=== PATIENT | female | born 1960 | race Caucasian/White ===

== ENCOUNTER 2017-09-04 09:46 | Inpatient (IN) | payer OTHER ==
[2017-09-04 09:56] VITALS: BMI 35.5
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
[2017-09-04] MEDS ORDERED: MENTHOL/PHENOL 1 EACH UD MM PRN (12:32)
[2017-09-04] MEDS ORDERED: IBUPROFEN 400 MG TABLET (FP) PO PRN (12:32)
[2017-09-04] MEDS ORDERED: NICOTINE POLACRILEX 2 MG GUM BUC PRN (12:32)
[2017-09-04] MEDS ORDERED: ACETAMINOPHEN 325 MG TABLET (FP) PO PRN (12:32)
[2017-09-04] MEDS ORDERED: MAG HYDROX/AL HYDROX/SIMETH 30 ML UNIT-DOSE CUP PO PRN (12:32)
[2017-09-04] MEDS ORDERED: guaiFENesin/D-METHORPHAN HB 10 ML UNIT-DOSE CUPS PO PRN (12:32)
[2017-09-04] MEDS ORDERED: P-EPHED 60MG/TRIPROLIDI 2.5MG TABLET PO PRN (12:32)
[2017-09-04] MEDS ORDERED: LOPERAMIDE HCL 2 MG CAPSULE PO PRN (12:32)
[2017-09-04] MEDS ORDERED: MAGNESIUM CITRATE 300 ML BOTTLE PO PRN (12:32)
[2017-09-04] MEDS ORDERED: VERAPAMIL HCL 240 MG E.R. TABLET (FP) PO SCH (13:00)
[2017-09-04] MEDS: LISINOPRIL 5 MG TABLET (FP) PO SCH (14:15)
[2017-09-04] MEDS: NICOTINE 14 MG/24 HOURS TOPICAL PATCH TD SCH (14:15)
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
[2017-09-04] MEDS: VERAPAMIL HCL 240 MG E.R. TABLET (FP) PO SCH (15:26)
[2017-09-04 15:39] LABS: MCH 29.4 pg (25.7-33.7); MCHC 33.7 g/dl (32.0-36.0); MEAN CELL VOLUME 87.2 fl (80-96); MEAN PLT VOLUME 9.5 fl (7.5-11.1); PLATELET COUNT 332 K/MM3 (134-434); RDW 13.4 % (11.6-15.6); WHITE BLOOD COUNT 8.2 K/mm3 (4.0-10.0)
[2017-09-04 15:51] LABS: ALBUMIN 3.8 g/dl (3.4-5.0); ANION GAP 4 (8-16); BILIRUBIN,TOTAL 0.4 mg/dL (0.2-1.0); CALCIUM 9.3 mg/dL (8.5-10.1); CO2 31 mmol/L (21-32); GLUCOSE,RANDOM 91 mg/dL (74-106); SGOT/AST 10 U/L (15-37); SGPT/ALT 18 U/L (12-78)
[2017-09-04 15:52] LABS: ALK PHOS 131 U/L (45-117); TOT PROT 7.4 g/dl (6.4-8.2)
[2017-09-04 17:18] LABS: URINE APPEARANCE SLCLOUDY; URINE BILIRUBIN NEGATIVE (NEGATIVE); URINE BLOOD 1+ (NEGATIVE); URINE COLOR LTYELLOW; URINE GLUCOSE (UA) NEGATIVE (NEGATIVE); URINE KETONE NEGATIVE (NEGATIVE); URINE NITRITE NEGATIVE (NEGATIVE); URINE PROTEIN NEGATIVE (NEGATIVE); URINE UROBILINOGEN NEGATIVE mg/dL (0.2-1.0)
[2017-09-04 17:21] LABS: URINE BACTERIA RARE /hpf (NONE SEEN); URINE MUCUS RARE; URINE RBC 2 /hpf (0-3); URINE WBC 5 /hpf (3-5)
[2017-09-04 18:23] LABS: SICKLE CELL SCREEN NEGATIVE (NEGATIVE)
[2017-09-04 20:37] LABS: URINE LEUK ESTERASE TRACE (NEGATIVE)
[2017-09-04] MEDS ORDERED: PT OWN MED DRAWER 7, Y5N ONE (21:45)
[2017-09-04] MEDS: diphenhydrAMINE HCL 50 MG CAPSULE PO PRN (21:50)
[2017-09-04] MEDS: THIAMINE HCL 100 MG TABLET (FP) PO SCH (21:50)
[2017-09-04] MEDS: QUEtiapine FUMARATE 100 MG TABLET (FP) PO SCH (21:50)
[2017-09-04] MEDS: DIVALPROEX SODIUM 125 MG TABLET E.C. (FP) PO SCH (21:51)
[2017-09-05] MEDS ORDERED: metFORMIN HCL 500 MG TABLET (FP) PO SCH (07:00)
[2017-09-05] MEDS: metFORMIN HCL 500 MG TABLET (FP) PO SCH (09:00)
[2017-09-05] MEDS ORDERED: PT OWN MED DRAWER 7, Y5N ONE ×4 (09:07→21:52)
[2017-09-05] MEDS: LISINOPRIL 5 MG TABLET (FP) PO SCH (10:51)
[2017-09-05] MEDS: VERAPAMIL HCL 240 MG E.R. TABLET (FP) PO SCH (10:51)
[2017-09-05] MEDS: PRENATAL VITAMINS W/ FOLIC ACID TABLET (FP) PO SCH (10:51)
[2017-09-05] MEDS: DIVALPROEX SODIUM 125 MG TABLET E.C. (FP) PO SCH ×2 (10:52→21:47)
[2017-09-05] MEDS: NICOTINE 14 MG/24 HOURS TOPICAL PATCH TD SCH (10:53)
[2017-09-05] MEDS: hydrOXYzine PAMOATE 50 MG CAPSULE (FP) PO PRN ×2 (10:54→16:37)
[2017-09-05] MEDS: QUEtiapine FUMARATE 100 MG TABLET (FP) PO SCH (21:47)
[2017-09-05] MEDS: THIAMINE HCL 100 MG TABLET (FP) PO SCH (21:47)
[2017-09-06] MEDS: metFORMIN HCL 500 MG TABLET (FP) PO SCH (09:47)
[2017-09-06] MEDS: LISINOPRIL 5 MG TABLET (FP) PO SCH (10:39)
[2017-09-06] MEDS: NICOTINE 14 MG/24 HOURS TOPICAL PATCH TD SCH (10:39)
[2017-09-06] MEDS: PRENATAL VITAMINS W/ FOLIC ACID TABLET (FP) PO SCH (10:39)
[2017-09-06] MEDS: DIVALPROEX SODIUM 125 MG TABLET E.C. (FP) PO SCH ×2 (10:41→21:48)
[2017-09-06] MEDS: VERAPAMIL HCL 240 MG E.R. TABLET (FP) PO SCH (10:41)
--- NOTE | 2017-09-06 12:41 | EKG ---
Test Reason : Blood Pressure : / mmHG Vent. Rate : 073 BPM Atrial Rate : 073 BPM P-R Int : 140 ms QRS Dur : 084 ms QT Int : 372 ms P-R-T Axes : 058 058 056 degrees QTc Int : 409 ms NORMAL SINUS RHYTHM NORMAL ECG NO PREVIOUS ECGS AVAILABLE Confirmed by AIXA PALMA, ESAU ([id number]) on 09/06/2017 12:41:10 PM Referred By: Confirmed By:ESAU KRUSE MD
[2017-09-06] MEDS ORDERED: PT OWN MED DRAWER 7, Y5N ONE (19:46)
[2017-09-06] MEDS: QUEtiapine FUMARATE 100 MG TABLET (FP) PO SCH (21:48)
[2017-09-06] MEDS: THIAMINE HCL 100 MG TABLET (FP) PO SCH (21:48)
[2017-09-07] MEDS: metFORMIN HCL 500 MG TABLET (FP) PO SCH (08:07)
[2017-09-07] MEDS: NICOTINE 14 MG/24 HOURS TOPICAL PATCH TD SCH (10:35)
[2017-09-07] MEDS ORDERED: PT OWN MED DRAWER 7, Y5N ONE (10:35)
[2017-09-07] MEDS: PRENATAL VITAMINS W/ FOLIC ACID TABLET (FP) PO SCH (10:36)
[2017-09-07] MEDS: DIVALPROEX SODIUM 125 MG TABLET E.C. (FP) PO SCH ×2 (10:36→21:47)
[2017-09-07] MEDS: LISINOPRIL 5 MG TABLET (FP) PO SCH (10:38)
[2017-09-07] MEDS: VERAPAMIL HCL 240 MG E.R. TABLET (FP) PO SCH (10:39)
[2017-09-07] MEDS: QUEtiapine FUMARATE 100 MG TABLET (FP) PO SCH (21:47)
[2017-09-07] MEDS: THIAMINE HCL 100 MG TABLET (FP) PO SCH (21:48)
[2017-09-08] MEDS: hydrOXYzine PAMOATE 50 MG CAPSULE (FP) PO PRN (07:21)
[2017-09-08] MEDS ORDERED: PT OWN MED DRAWER 7, Y5N ONE ×3 (08:25→20:39)
[2017-09-08] MEDS: metFORMIN HCL 500 MG TABLET (FP) PO SCH (08:28)
[2017-09-08] MEDS: LISINOPRIL 5 MG TABLET (FP) PO SCH (10:31)
[2017-09-08] MEDS: PRENATAL VITAMINS W/ FOLIC ACID TABLET (FP) PO SCH (10:31)
[2017-09-08] MEDS: DIVALPROEX SODIUM 125 MG TABLET E.C. (FP) PO SCH ×2 (10:31→21:35)
[2017-09-08] MEDS: NICOTINE 14 MG/24 HOURS TOPICAL PATCH TD SCH (10:31)
[2017-09-08] MEDS: VERAPAMIL HCL 240 MG E.R. TABLET (FP) PO SCH (10:31)
[2017-09-08] MEDS: THIAMINE HCL 100 MG TABLET (FP) PO SCH (21:35)
[2017-09-08] MEDS: QUEtiapine FUMARATE 100 MG TABLET (FP) PO SCH (21:35)
[2017-09-09] MEDS ORDERED: PT OWN MED DRAWER 7, Y5N ONE ×2 (08:22→20:22)
[2017-09-09] MEDS: metFORMIN HCL 500 MG TABLET (FP) PO SCH (08:30)
[2017-09-09] MEDS: VERAPAMIL HCL 240 MG E.R. TABLET (FP) PO SCH (09:47)
[2017-09-09] MEDS: NICOTINE 14 MG/24 HOURS TOPICAL PATCH TD SCH (09:47)
[2017-09-09] MEDS: LISINOPRIL 5 MG TABLET (FP) PO SCH (09:47)
[2017-09-09] MEDS: PRENATAL VITAMINS W/ FOLIC ACID TABLET (FP) PO SCH (09:47)
[2017-09-09] MEDS: DIVALPROEX SODIUM 125 MG TABLET E.C. (FP) PO SCH ×2 (09:47→21:49)
[2017-09-09] MEDS: QUEtiapine FUMARATE 100 MG TABLET (FP) PO SCH (21:49)
[2017-09-09] MEDS: THIAMINE HCL 100 MG TABLET (FP) PO SCH (21:49)
[2017-09-10] MEDS: hydrOXYzine PAMOATE 50 MG CAPSULE (FP) PO PRN (06:54)
[2017-09-10] MEDS: metFORMIN HCL 500 MG TABLET (FP) PO SCH (08:25)
[2017-09-10] MEDS: VERAPAMIL HCL 240 MG E.R. TABLET (FP) PO SCH (09:57)
[2017-09-10] MEDS: DIVALPROEX SODIUM 125 MG TABLET E.C. (FP) PO SCH ×2 (09:58→22:06)
[2017-09-10] MEDS: LISINOPRIL 5 MG TABLET (FP) PO SCH (09:58)
[2017-09-10] MEDS: NICOTINE 14 MG/24 HOURS TOPICAL PATCH TD SCH (09:58)
[2017-09-10] MEDS: PRENATAL VITAMINS W/ FOLIC ACID TABLET (FP) PO SCH (09:58)
[2017-09-10] MEDS: QUEtiapine FUMARATE 100 MG TABLET (FP) PO SCH (22:06)
[2017-09-10] MEDS: THIAMINE HCL 100 MG TABLET (FP) PO SCH (22:06)
[2017-09-11] MEDS: metFORMIN HCL 500 MG TABLET (FP) PO SCH (08:30)
[2017-09-11] MEDS ORDERED: PT OWN MED DRAWER 7, Y5N ONE ×2 (08:49→19:30)
[2017-09-11] MEDS: VERAPAMIL HCL 240 MG E.R. TABLET (FP) PO SCH (10:26)
[2017-09-11] MEDS: PRENATAL VITAMINS W/ FOLIC ACID TABLET (FP) PO SCH (10:26)
[2017-09-11] MEDS: LISINOPRIL 5 MG TABLET (FP) PO SCH (10:26)
[2017-09-11] MEDS: DIVALPROEX SODIUM 125 MG TABLET E.C. (FP) PO SCH ×2 (10:26→21:35)
[2017-09-11] MEDS: NICOTINE 14 MG/24 HOURS TOPICAL PATCH TD SCH (10:28)
[2017-09-11] MEDS: MAGNESIUM HYDROX 2400MG/30ML ORAL SUSPENSION 30 ML CUP PO PRN (15:34)
[2017-09-11] MEDS: QUEtiapine FUMARATE 100 MG TABLET (FP) PO SCH (21:35)
[2017-09-11] MEDS: THIAMINE HCL 100 MG TABLET (FP) PO SCH (21:35)
[2017-09-11] MEDS: hydrOXYzine PAMOATE 50 MG CAPSULE (FP) PO PRN (21:42)
[2017-09-12] MEDS: hydrOXYzine PAMOATE 50 MG CAPSULE (FP) PO PRN (06:47)
[2017-09-12] MEDS ORDERED: PT OWN MED DRAWER 7, Y5N ONE ×2 (08:58→19:50)
[2017-09-12] MEDS: metFORMIN HCL 500 MG TABLET (FP) PO SCH (09:00)
[2017-09-12] MEDS: PRENATAL VITAMINS W/ FOLIC ACID TABLET (FP) PO SCH (10:28)
[2017-09-12] MEDS: NICOTINE 14 MG/24 HOURS TOPICAL PATCH TD SCH (10:28)
[2017-09-12] MEDS: LISINOPRIL 5 MG TABLET (FP) PO SCH (10:28)
[2017-09-12] MEDS: VERAPAMIL HCL 240 MG E.R. TABLET (FP) PO SCH (10:28)
[2017-09-12] MEDS: DIVALPROEX SODIUM 125 MG TABLET E.C. (FP) PO SCH ×2 (10:28→21:47)
[2017-09-12] MEDS: THIAMINE HCL 100 MG TABLET (FP) PO SCH (21:47)
[2017-09-12] MEDS: QUEtiapine FUMARATE 100 MG TABLET (FP) PO SCH (21:47)
[2017-09-13] MEDS ORDERED: PT OWN MED DRAWER 7, Y5N ONE (09:07)
[2017-09-13] MEDS: PRENATAL VITAMINS W/ FOLIC ACID TABLET (FP) PO SCH (09:51)
[2017-09-13] MEDS: LISINOPRIL 5 MG TABLET (FP) PO SCH (09:51)
[2017-09-13] MEDS: metFORMIN HCL 500 MG TABLET (FP) PO SCH (09:51)
[2017-09-13] MEDS: VERAPAMIL HCL 240 MG E.R. TABLET (FP) PO SCH (09:52)
[2017-09-13] MEDS: DIVALPROEX SODIUM 125 MG TABLET E.C. (FP) PO SCH ×2 (09:53→21:46)
[2017-09-13] MEDS: NICOTINE 14 MG/24 HOURS TOPICAL PATCH TD SCH (09:53)
[2017-09-13] MEDS: QUEtiapine FUMARATE 50 MG TABLET PO SCH (21:47)
[2017-09-13] MEDS: THIAMINE HCL 100 MG TABLET (FP) PO SCH (21:47)
[2017-09-14] MEDS: hydrOXYzine PAMOATE 50 MG CAPSULE (FP) PO PRN (07:17)
[2017-09-14] MEDS: metFORMIN HCL 500 MG TABLET (FP) PO SCH (08:38)
[2017-09-14] MEDS ORDERED: PT OWN MED DRAWER 7, Y5N ONE (08:50)
[2017-09-14] MEDS: NICOTINE 14 MG/24 HOURS TOPICAL PATCH TD SCH (10:33)
[2017-09-14] MEDS: DIVALPROEX SODIUM 125 MG TABLET E.C. (FP) PO SCH ×2 (10:33→22:05)
[2017-09-14] MEDS: PRENATAL VITAMINS W/ FOLIC ACID TABLET (FP) PO SCH (10:33)
[2017-09-14] MEDS: LISINOPRIL 5 MG TABLET (FP) PO SCH (10:33)
[2017-09-14] MEDS: VERAPAMIL HCL 240 MG E.R. TABLET (FP) PO SCH (10:33)
[2017-09-14] MEDS: MAGNESIUM HYDROX 2400MG/30ML ORAL SUSPENSION 30 ML CUP PO PRN (17:32)
[2017-09-14] MEDS: QUEtiapine FUMARATE 50 MG TABLET PO SCH (21:46)
[2017-09-14] MEDS: THIAMINE HCL 100 MG TABLET (FP) PO SCH (21:46)
[2017-09-14] MEDS: diphenhydrAMINE HCL 50 MG CAPSULE PO PRN (21:48)
[2017-09-15] MEDS: hydrOXYzine PAMOATE 50 MG CAPSULE (FP) PO PRN (06:17)
[2017-09-15] MEDS: metFORMIN HCL 500 MG TABLET (FP) PO SCH (08:39)
[2017-09-15] MEDS ORDERED: PT OWN MED DRAWER 7, Y5N ONE (08:55)
[2017-09-15] MEDS: LISINOPRIL 5 MG TABLET (FP) PO SCH (10:34)
[2017-09-15] MEDS: PRENATAL VITAMINS W/ FOLIC ACID TABLET (FP) PO SCH (10:34)
[2017-09-15] MEDS: VERAPAMIL HCL 240 MG E.R. TABLET (FP) PO SCH (10:34)
[2017-09-15] MEDS: DIVALPROEX SODIUM 125 MG TABLET E.C. (FP) PO SCH ×2 (10:35→22:05)
[2017-09-15] MEDS: NICOTINE 14 MG/24 HOURS TOPICAL PATCH TD SCH (10:35)
[2017-09-15] MEDS ORDERED: QUEtiapine FUMARATE 200 MG TABLET PO SCH (15:45)
[2017-09-15] MEDS: QUEtiapine FUMARATE 50 MG TABLET PO SCH (20:19)
[2017-09-15] MEDS: THIAMINE HCL 100 MG TABLET (FP) PO SCH (22:05)
[2017-09-15] MEDS: diphenhydrAMINE HCL 50 MG CAPSULE PO PRN (22:06)
[2017-09-16] MEDS: metFORMIN HCL 500 MG TABLET (FP) PO SCH (08:54)
[2017-09-16] MEDS: PRENATAL VITAMINS W/ FOLIC ACID TABLET (FP) PO SCH (10:03)
[2017-09-16] MEDS: LISINOPRIL 5 MG TABLET (FP) PO SCH (10:03)
[2017-09-16] MEDS: VERAPAMIL HCL 240 MG E.R. TABLET (FP) PO SCH (10:03)
[2017-09-16] MEDS: NICOTINE 14 MG/24 HOURS TOPICAL PATCH TD SCH (10:03)
[2017-09-16] MEDS: DIVALPROEX SODIUM 125 MG TABLET E.C. (FP) PO SCH ×2 (10:04→21:50)
[2017-09-16] MEDS: QUEtiapine FUMARATE 50 MG TABLET PO SCH (21:49)
[2017-09-16] MEDS: THIAMINE HCL 100 MG TABLET (FP) PO SCH (21:49)
[2017-09-17] MEDS: hydrOXYzine PAMOATE 50 MG CAPSULE (FP) PO PRN ×2 (06:44→12:33)
[2017-09-17] MEDS: metFORMIN HCL 500 MG TABLET (FP) PO SCH (08:40)
[2017-09-17] MEDS: VERAPAMIL HCL 240 MG E.R. TABLET (FP) PO SCH (10:15)
[2017-09-17] MEDS: NICOTINE 14 MG/24 HOURS TOPICAL PATCH TD SCH (10:15)
[2017-09-17] MEDS: DIVALPROEX SODIUM 125 MG TABLET E.C. (FP) PO SCH ×2 (10:15→21:58)
[2017-09-17] MEDS: PRENATAL VITAMINS W/ FOLIC ACID TABLET (FP) PO SCH (10:16)
[2017-09-17] MEDS: LISINOPRIL 5 MG TABLET (FP) PO SCH (10:16)
[2017-09-17] MEDS: THIAMINE HCL 100 MG TABLET (FP) PO SCH (21:58)
[2017-09-17] MEDS: QUEtiapine FUMARATE 50 MG TABLET PO SCH (21:58)
[2017-09-18] MEDS: hydrOXYzine PAMOATE 50 MG CAPSULE (FP) PO PRN (06:32)
[2017-09-18] MEDS ORDERED: PT OWN MED DRAWER 7, Y5N ONE (08:54)
[2017-09-18] MEDS: metFORMIN HCL 500 MG TABLET (FP) PO SCH (08:55)
[2017-09-18] MEDS: DIVALPROEX SODIUM 125 MG TABLET E.C. (FP) PO SCH ×2 (10:43→21:47)
[2017-09-18] MEDS: VERAPAMIL HCL 240 MG E.R. TABLET (FP) PO SCH (10:43)
[2017-09-18] MEDS: PRENATAL VITAMINS W/ FOLIC ACID TABLET (FP) PO SCH (10:43)
[2017-09-18] MEDS: LISINOPRIL 5 MG TABLET (FP) PO SCH (10:43)
[2017-09-18] MEDS: NICOTINE 14 MG/24 HOURS TOPICAL PATCH TD SCH (10:44)
[2017-09-18] MEDS: THIAMINE HCL 100 MG TABLET (FP) PO SCH (21:47)
[2017-09-18] MEDS: QUEtiapine FUMARATE 50 MG TABLET PO SCH (21:47)
[2017-09-19] MEDS: hydrOXYzine PAMOATE 50 MG CAPSULE (FP) PO PRN (06:29)
[2017-09-19] MEDS: metFORMIN HCL 500 MG TABLET (FP) PO SCH (08:32)
[2017-09-19] MEDS: NICOTINE 14 MG/24 HOURS TOPICAL PATCH TD SCH (10:36)
[2017-09-19] MEDS: VERAPAMIL HCL 240 MG E.R. TABLET (FP) PO SCH (10:37)
[2017-09-19] MEDS: DIVALPROEX SODIUM 125 MG TABLET E.C. (FP) PO SCH ×2 (10:37→21:51)
[2017-09-19] MEDS: LISINOPRIL 5 MG TABLET (FP) PO SCH (10:37)
[2017-09-19] MEDS: PRENATAL VITAMINS W/ FOLIC ACID TABLET (FP) PO SCH (10:38)
[2017-09-19] MEDS: THIAMINE HCL 100 MG TABLET (FP) PO SCH (21:51)
[2017-09-19] MEDS: QUEtiapine FUMARATE 50 MG TABLET PO SCH (21:51)
[2017-09-20] MEDS: hydrOXYzine PAMOATE 50 MG CAPSULE (FP) PO PRN (06:22)
[2017-09-20] MEDS: metFORMIN HCL 500 MG TABLET (FP) PO SCH (08:45)
[2017-09-20] MEDS: NICOTINE 14 MG/24 HOURS TOPICAL PATCH TD SCH (10:53)
[2017-09-20] MEDS: PRENATAL VITAMINS W/ FOLIC ACID TABLET (FP) PO SCH (10:54)
[2017-09-20] MEDS: LISINOPRIL 5 MG TABLET (FP) PO SCH (10:54)
[2017-09-20] MEDS: DIVALPROEX SODIUM 125 MG TABLET E.C. (FP) PO SCH ×2 (10:54→21:55)
[2017-09-20] MEDS: VERAPAMIL HCL 240 MG E.R. TABLET (FP) PO SCH (10:54)
[2017-09-20] MEDS: QUEtiapine FUMARATE 50 MG TABLET PO SCH (21:55)
[2017-09-20] MEDS: THIAMINE HCL 100 MG TABLET (FP) PO SCH (21:55)
[2017-09-21] MEDS: hydrOXYzine PAMOATE 50 MG CAPSULE (FP) PO PRN (06:32)
[2017-09-21] MEDS: metFORMIN HCL 500 MG TABLET (FP) PO SCH (08:36)
[2017-09-21] MEDS: LISINOPRIL 5 MG TABLET (FP) PO SCH (10:18)
[2017-09-21] MEDS: VERAPAMIL HCL 240 MG E.R. TABLET (FP) PO SCH (10:18)
[2017-09-21] MEDS: NICOTINE 14 MG/24 HOURS TOPICAL PATCH TD SCH (10:19)
[2017-09-21] MEDS: DIVALPROEX SODIUM 125 MG TABLET E.C. (FP) PO SCH ×2 (10:19→22:01)
[2017-09-21] MEDS: PRENATAL VITAMINS W/ FOLIC ACID TABLET (FP) PO SCH (10:19)
[2017-09-21] MEDS: QUEtiapine FUMARATE 50 MG TABLET PO SCH (22:01)
[2017-09-21] MEDS: THIAMINE HCL 100 MG TABLET (FP) PO SCH (22:03)
[2017-09-22] MEDS: hydrOXYzine PAMOATE 50 MG CAPSULE (FP) PO PRN (06:55)
[2017-09-22] MEDS: metFORMIN HCL 500 MG TABLET (FP) PO SCH (08:31)
[2017-09-22] MEDS: LISINOPRIL 5 MG TABLET (FP) PO SCH (10:51)
[2017-09-22] MEDS: DIVALPROEX SODIUM 125 MG TABLET E.C. (FP) PO SCH ×2 (10:51→21:55)
[2017-09-22] MEDS: VERAPAMIL HCL 240 MG E.R. TABLET (FP) PO SCH (10:51)
[2017-09-22] MEDS: PRENATAL VITAMINS W/ FOLIC ACID TABLET (FP) PO SCH (10:52)
[2017-09-22] MEDS: NICOTINE 14 MG/24 HOURS TOPICAL PATCH TD SCH (10:52)
[2017-09-22] MEDS: QUEtiapine FUMARATE 50 MG TABLET PO SCH (21:55)
[2017-09-22] MEDS: THIAMINE HCL 100 MG TABLET (FP) PO SCH (21:56)
[2017-09-22] MEDS: diphenhydrAMINE HCL 50 MG CAPSULE PO PRN (21:56)
[2017-09-23] MEDS: hydrOXYzine PAMOATE 50 MG CAPSULE (FP) PO PRN (07:12)
[2017-09-23] MEDS: metFORMIN HCL 500 MG TABLET (FP) PO SCH (08:35)
[2017-09-23] MEDS: VERAPAMIL HCL 240 MG E.R. TABLET (FP) PO SCH (09:04)
[2017-09-23] MEDS: DIVALPROEX SODIUM 125 MG TABLET E.C. (FP) PO SCH ×2 (09:05→21:13)
[2017-09-23] MEDS: LISINOPRIL 5 MG TABLET (FP) PO SCH (09:05)
[2017-09-23] MEDS: NICOTINE 14 MG/24 HOURS TOPICAL PATCH TD SCH (09:05)
[2017-09-23] MEDS: PRENATAL VITAMINS W/ FOLIC ACID TABLET (FP) PO SCH (09:05)
[2017-09-23] MEDS ORDERED: QUEtiapine FUMARATE 25 MG TABLET (FP) ONE (20:53)
[2017-09-23] MEDS: QUEtiapine FUMARATE 50 MG TABLET PO SCH (21:12)
[2017-09-23] MEDS: THIAMINE HCL 100 MG TABLET (FP) PO SCH (21:13)
[2017-09-24] MEDS: hydrOXYzine PAMOATE 50 MG CAPSULE (FP) PO PRN (06:44)
[2017-09-24] MEDS: metFORMIN HCL 500 MG TABLET (FP) PO SCH (08:31)
[2017-09-24] MEDS: VERAPAMIL HCL 240 MG E.R. TABLET (FP) PO SCH (09:04)
[2017-09-24] MEDS: PRENATAL VITAMINS W/ FOLIC ACID TABLET (FP) PO SCH (09:04)
[2017-09-24] MEDS: DIVALPROEX SODIUM 125 MG TABLET E.C. (FP) PO SCH ×2 (09:05→21:42)
[2017-09-24] MEDS: NICOTINE 14 MG/24 HOURS TOPICAL PATCH TD SCH (09:05)
[2017-09-24] MEDS: LISINOPRIL 5 MG TABLET (FP) PO SCH (09:05)
[2017-09-24] MEDS: QUEtiapine FUMARATE 50 MG TABLET PO SCH (20:39)
[2017-09-24] MEDS: THIAMINE HCL 100 MG TABLET (FP) PO SCH (21:42)
[2017-09-24] MEDS: diphenhydrAMINE HCL 50 MG CAPSULE PO PRN (23:57)
[2017-09-25] MEDS: hydrOXYzine PAMOATE 50 MG CAPSULE (FP) PO PRN (06:07)
[2017-09-25 07:10] VITALS: BP 112/72; PULSE 83; TEMP 98
--- NOTE | 2017-09-25 17:21 | PN ---
Psychiatric Progress Note Vital Signs: Vital Signs Period Temp Pulse Resp BP Sys/Diaz Pulse Ox Last 24 Hr 98 F 83 18-18 112/72 Date of Session: 09/25/17 Chief Complaint:: Discharge visit. HPI: Patient addressed Cocaine and Cannabis dependence comorbid with Bipolar II Disorder. ROS: DM,HTN. Current Side Effect: No Lab tests ordered: No Lab tests reviewed: Yes Provider note:: Patient completed this program today.She has met her treatment goals and will continue to address her issues on outpatient basis.SEroquel 150 mg po hs and Depakote 125 mg po bid. Total face to face time:: 30 Mental Status Exam - Mental Status Exam Alert and Oriented to: Time, Place, Person Cognitive Function: Grossly Intact Patient Appearance: Well Groomed Mood: Euthymic Affect: Mood Congruent Patient Behavior: Cooperative Speech Pattern: Clear Voice Loudness: Normal Thought Process: Goal Oriented Thought Disorder: Not Present Hallucinations: Denies Suicidal Ideation: Denies Homicidal Ideation: Denies Insight/Judgement: Fair Sleep: Fair Muscle strength/Tone: Normal Gait/Station: Normal Psychiatric Treatment Plan - Problem List (3) Type 2 diabetes mellitus Qualifiers: Diabetes mellitus complication status: with unspecified complications
== END 2017-09-25 07:55 | disposition home or self-care (01) | DRG 895 ==
LOC: YASAS 09:46 → Y3E 12:02
PROVIDERS: ADMIT Psychiatry & Neurology Psychiatry; ATTEND Psychiatry & Neurology Psychiatry
PROC: HZ42ZZZ Group Counseling for Substance Abuse Treatment, Cognitive-Behavioral (ICD-10-PCS; principal; 2017-09-04)
DX: F14.20 Cocaine dependence, uncomplicated (principal); F31.81 Bipolar II disorder; F12.20 Cannabis dependence, uncomplicated; I10 Essential (primary) hypertension; E11.9 Type 2 diabetes mellitus without complications; Z87.42 Personal history of other diseases of the female genital tract
CPT/HCPCS: 36415; 71020-TC; 80053; 81003; 81015; 85027; 85660; 86593; 93005; 93010